=== PATIENT | female | born 1950 | race Caucasian/White ===

== ENCOUNTER 2017-02-20 12:17 | Emergency (ER) | payer MEDICARE, BC ==
[~2017-02-20] VITALS: Ht 175.3 cm; Wt 65.0 kg
[2017-02-20] MEDS ORDERED: SODIUM CHLORIDE 0.9% 1,000 ML IV ONE (12:19)
[2017-02-20] MEDS ORDERED: SODIUM CHLORIDE FLUSH 10ML SYR IVF ONE (12:30)
[2017-02-20 12:39] LABS: HEMOGLOBIN 13.6 g/dL (11.7-16.4)
[2017-02-20 12:52] LABS: ASPARTATE AMINO TRANSFERASE 23 U/L (15-37); BLOOD UREA NITROGEN 13 mg/dL (7-18)
[2017-02-20] MEDS ORDERED: CELE200C PO (13:21)
[2017-02-20] MEDS ORDERED: MULT-154 PO (13:21)
[2017-02-20] MEDS ORDERED: ESCI10TA PO (13:21)
[2017-02-20] MEDS ORDERED: CALC500T26 PO (13:21)
[2017-02-20] MEDS ORDERED: ELET20TA PO (13:21)
[2017-02-20] MEDS ORDERED: ESTR0.5T PO (13:21)
[2017-02-20] MEDS ORDERED: LEVO75TA PO (13:21)
[2017-02-20] MEDS ORDERED: OMEG1CAP62 PO (13:21)
[2017-02-20] MEDS ORDERED: ACET650S21 PO (13:21)
[2017-02-20 14:51] VITALS: BP 137/79
== END 2017-02-20 14:52 | disposition home or self-care (01) ==
LOC: ED 14:20
DX: K59.00 Constipation, unspecified (principal); E87.1 Hypo-osmolality and hyponatremia; R10.9 Unspecified abdominal pain
CPT/HCPCS: 36415; 74020; 80053; 81001; 83690; 85025; 96360; 96361; 99285; J7030

== ENCOUNTER 2017-02-21 01:12 | Inpatient (IN) | payer MEDICARE, BC ==
[~2017-02-21] VITALS: Ht 175.3 cm; Wt 65.6 kg
[~2017-02-21 01:12] MED LIST: ACET650S21 PO; CALC500T26 PO; CELE200C PO; ELET20TA PO; ESCI10TA PO; ESTR0.5T PO; LEVO75TA PO; MULT-154 PO; OMEG1CAP62 PO
[2017-02-21] MEDS ORDERED: ONDANSETRON 2MG/ML, 2ML IVPush ONE (02:00)
[2017-02-21] MEDS ORDERED: SODIUM CHLORIDE 0.9% 1,000ML IVBOLUS ONE (02:00)
[2017-02-21] MEDS ORDERED: HYDROmorphone 1 MG/ML, 1ML IVPush PRN (02:00)
[2017-02-21 02:17] LABS: HEMOGLOBIN 14.7 g/dL (11.7-16.4)
[2017-02-21] MEDS ORDERED: ONDANSETRON 2MG/ML, 2ML ONE (02:21)
[2017-02-21] MEDS ORDERED: HYDROmorphone 1 MG/ML, 1ML ONE (02:21)
[2017-02-21 02:28] LABS: ASPARTATE AMINO TRANSFERASE 23 U/L (15-37); BLOOD UREA NITROGEN 9 mg/dL (7-18)
[2017-02-21] MEDS ORDERED: OMNIPAQUE 350 MG/ML, 100ML BOTTLE ONE (02:50)
[2017-02-21] MEDS ORDERED: BISACODYL 10 MG SUPP PR PRN (05:00)
[2017-02-21] MEDS ORDERED: ACETAMINOPHEN 325 MG TABLET PO PRN (05:00)
[2017-02-21] MEDS ORDERED: POLYETHYLENE GLYCOL 17 GM PACKET PO PRN (05:00)
[2017-02-21] MEDS ORDERED: LABETALOL 5MG/ML, 20ML IV PRN (05:00)
[2017-02-21] MEDS ORDERED: DOCUSATE 100 MG CAPSULE PO PRN (05:00)
[2017-02-21] MEDS ORDERED: TRAZODONE 50MG TABLET PO PRN (05:00)
[2017-02-21] MEDS: NS + 20MEQ KCL 1,000 ML IV SCH ×4 (05:47→21:29)
[2017-02-21] MEDS: LEVOTHYROXINE 75 MCG TABLET PO SCH (05:50)
[2017-02-21 06:10] VITALS: BP 171/77
[2017-02-21 07:26] VITALS: BP 162/92
[2017-02-21] MEDS: ONDANSETRON 2MG/ML, 2ML IVP PRN ×2 (08:17→16:35)
[2017-02-21] MEDS: CALCIUM CARBONATE 500 MG TABLET PO SCH (09:00)
[2017-02-21] MEDS: ESTRADIOL 0.5 MG TABLET PO SCH (09:00)
[2017-02-21] MEDS: CITALOPRAM 20 MG TABLET PO SCH (09:00)
[2017-02-21] MEDS: FAMOTIDINE 20 MG/2 ML IV SCH ×2 (09:24→21:29)
[2017-02-21] MEDS: HEPARIN 5,000 UNITS/ML, 1ML SQ SCH ×2 (09:25→17:54)
[2017-02-21] MEDS: MORPHINE SULFATE 4 MG/ML, 1ML IVPush PRN (09:57)
[2017-02-21 13:30] VITALS: BP 152/79
[2017-02-21] MEDS ORDERED: KETOROLAC 30 MG/1 ML IM PRN ×2 (15:30)
[2017-02-21] MEDS: KETOROLAC 30 MG/1 ML IVPush PRN (16:35)
[2017-02-21 19:34] VITALS: BP 154/89
[2017-02-22 01:17] VITALS: BP 153/85
[2017-02-22] MEDS: HEPARIN 5,000 UNITS/ML, 1ML SQ SCH ×3 (01:19→20:58)
[2017-02-22] MEDS: LEVOTHYROXINE 75 MCG TABLET PO SCH (04:57)
[2017-02-22 05:39] LABS: HEMOGLOBIN 15.9 g/dL (11.7-16.4)
[2017-02-22 05:50] LABS: BLOOD UREA NITROGEN 10 mg/dL (7-18)
[2017-02-22] MEDS: NS + 20MEQ KCL 1,000 ML IV SCH (06:32)
[2017-02-22 07:51] VITALS: BP 154/80
[2017-02-22] MEDS: CITALOPRAM 20 MG TABLET PO SCH (09:00)
[2017-02-22] MEDS: CALCIUM CARBONATE 500 MG TABLET PO SCH (09:00)
[2017-02-22] MEDS: ESTRADIOL 0.5 MG TABLET PO SCH (09:00)
[2017-02-22] MEDS ORDERED: BENZOCAINE AEROSOL SPRAY 20%, 60ML TP ONE (09:00)
[2017-02-22] MEDS: FAMOTIDINE 20 MG/2 ML IV SCH ×2 (11:27→20:58)
[2017-02-22] MEDS ORDERED: BENZOCAINE AEROSOL SPRAY 20%, 60ML TP PRN (11:30)
[2017-02-22] MEDS: ONDANSETRON 2MG/ML, 2ML IVP PRN (13:37)
[2017-02-22] MEDS: KETOROLAC 30 MG/1 ML IVPush PRN (14:26)
[2017-02-22 14:45] VITALS: BP 153/80
[2017-02-22 19:22] VITALS: BP 155/84
[2017-02-22] MEDS ORDERED: GLYCERIN ADULT SUPP PR ONE (21:00)
[2017-02-23 01:13] VITALS: BP 167/88
[2017-02-23] MEDS: KETOROLAC 30 MG/1 ML IVPush PRN ×2 (01:33→19:20)
[2017-02-23 05:41] LABS: HEMOGLOBIN 13.9 g/dL (11.7-16.4)
[2017-02-23 05:51] LABS: BLOOD UREA NITROGEN 16 mg/dL (7-18)
[2017-02-23] MEDS: HEPARIN 5,000 UNITS/ML, 1ML SQ SCH ×3 (06:25→17:56)
[2017-02-23 07:43] VITALS: BP 161/86
[2017-02-23] MEDS: FAMOTIDINE 20 MG/2 ML IV SCH (08:34)
[2017-02-23] MEDS: NS + 20MEQ KCL 1,000 ML IV SCH ×3 (09:38→17:56)
[2017-02-23] MEDS: MORPHINE SULFATE 4 MG/ML, 1ML IVPush PRN (12:23)
[2017-02-23] MEDS: ONDANSETRON 2MG/ML, 2ML IVP PRN (12:23)
[2017-02-23 13:57] VITALS: BP 150/83
[2017-02-23] MEDS ORDERED: ONDANSETRON 2MG/ML, 2ML IVPush PRN (17:00)
[2017-02-23 20:55] VITALS: BP 136/77
[2017-02-23] MEDS: FAMOTIDINE 20 MG/2 ML IVPush SCH (20:55)
[2017-02-24] MEDS: D5%-0.9% NACL+KCL 20MEQ 1,000 ML IV SCH ×3 (00:28→23:58)
[2017-02-24] MEDS: HEPARIN 5,000 UNITS/ML, 1ML SQ SCH (01:00)
[2017-02-24] MEDS: KETOROLAC 30 MG/1 ML IVPush PRN (01:57)
[2017-02-24 02:00] VITALS: BP 150/77
[2017-02-24] MEDS ORDERED: MORPHINE SULFATE 4 MG/ML, 1ML IVPush ONE (04:00)
[2017-02-24 05:34] LABS: HEMOGLOBIN 12.4 g/dL (11.7-16.4)
[2017-02-24 05:43] LABS: BLOOD UREA NITROGEN 15 mg/dL (7-18)
[2017-02-24] MEDS: HYDROmorphone 2 MG/ML, 1ML IVPush PRN (07:31)
[2017-02-24 08:00] VITALS: BP 153/83
[2017-02-24] MEDS: FAMOTIDINE 20 MG/2 ML IVPush SCH ×2 (10:52→22:34)
[2017-02-24] MEDS ORDERED: FENTANYL PF 250 MCG/5ML ONE (11:51)
[2017-02-24] MEDS ORDERED: MIDAZOLAM 1 MG/ML, 2ML ONE (11:51)
[2017-02-24] MEDS ORDERED: CEFAZOLIN 1,000 MG ONE (12:11)
[2017-02-24] MEDS ORDERED: ROCURONIUM 10 MG/ML ONE (12:11)
[2017-02-24] MEDS ORDERED: DEXAMETHASONE 4 MG/ML, 1ML ONE (12:11)
[2017-02-24] MEDS ORDERED: NEOSTIGMINE 1 MG/ML, 10ML ONE (12:11)
[2017-02-24] MEDS ORDERED: METOCLOPRAMIDE 5 MG/ML, 2ML ONE (12:11)
[2017-02-24] MEDS ORDERED: GLYCOPYRROLATE 0.2MG/1ML ONE (12:11)
[2017-02-24] MEDS ORDERED: SUCCINYLCHOLINE 20 MG/ML, 10ML ONE (12:11)
[2017-02-24] MEDS ORDERED: PROPOFOL 10 MG/ML, 20ML ONE (12:11)
[2017-02-24] MEDS ORDERED: ONDANSETRON 2MG/ML, 2ML ONE (12:11)
[2017-02-24] MEDS ORDERED: KETOROLAC 30 MG/1 ML ONE (12:11)
[2017-02-24] MEDS ORDERED: OXYcodone 5 MG/5 ML ORAL.SOL UDC PO PRN (13:00)
[2017-02-24] MEDS ORDERED: MIDAZOLAM 1 MG/ML, 2ML IV PRN (13:00)
[2017-02-24] MEDS ORDERED: MEPERIDINE/PF 25MG/0.5ML IVPush PRN (13:00)
[2017-02-24] MEDS ORDERED: LABETALOL 5MG/ML, 20ML IV PRN (13:00)
[2017-02-24] MEDS ORDERED: ALBUTEROL SULFATE 2.5 MG/3 ML NPPB PRN (13:00)
[2017-02-24] MEDS ORDERED: ONDANSETRON 2MG/ML, 2ML IVPush PRN (13:00)
[2017-02-24] MEDS ORDERED: EPHEDRINE 50 MG/ML, 1ML IVPush PRN (13:00)
[2017-02-24] MEDS ORDERED: hydrALAzine 20 MG/ML, 1ML IV PRN (13:00)
[2017-02-24] MEDS ORDERED: HYDROmorphone 1 MG/ML, 1ML IV PRN (13:00)
[2017-02-24] MEDS ORDERED: PROMETHAZINE 25 MG/ML, 1ML IV PRN (13:00)
[2017-02-24] MEDS ORDERED: ACETAMINOPHEN 325 MG TABLET PO PRN ×2 (13:00→15:00)
[2017-02-24] MEDS ORDERED: METOPROLOL 1 MG/ML, 5ML IV PRN (13:00)
[2017-02-24] MEDS ORDERED: FENTANYL PF 100 MCG/2ML IV PRN (13:00)
[2017-02-24] MEDS ORDERED: RELPAX PO PRN (15:00)
[2017-02-24 15:52] VITALS: BP 136/81
[2017-02-24 19:06] VITALS: BP 135/83
[2017-02-24] MEDS ORDERED: SODIUM CHLORIDE 0.9%, 500ML IVBOLUS ONE (21:30)
[2017-02-24] MEDS: KETOROLAC 30 MG/1 ML IV PRN (21:49)
[2017-02-25 00:39] VITALS: BP 134/82
[2017-02-25 05:41] LABS: HEMOGLOBIN 14.3 g/dL (11.7-16.4)
[2017-02-25 05:46] LABS: BLOOD UREA NITROGEN 14 mg/dL (7-18)
[2017-02-25] MEDS ORDERED: LEVOTHYROXINE 75 MCG TABLET PO SCH (06:00)
[2017-02-25] MEDS: KETOROLAC 30 MG/1 ML IV PRN ×3 (06:15→23:05)
[2017-02-25 06:31] VITALS: BP 133/79
[2017-02-25] MEDS: D5%-0.9% NACL+KCL 20MEQ 1,000 ML IV SCH ×3 (06:47→23:04)
[2017-02-25] MEDS: FAMOTIDINE 20 MG/2 ML IVPush SCH ×2 (08:23→20:16)
[2017-02-25] MEDS: HYDROmorphone 2 MG/ML, 1ML IVPush PRN (08:23)
[2017-02-25] MEDS: LEXAPRO 10 MG PO SCH (08:24)
[2017-02-25] MEDS: ESTRADIOL 0.5 MG TABLET PO SCH (08:24)
[2017-02-25] MEDS: MULTIVITAMIN 1 TABLET PO SCH (08:25)
[2017-02-25] MEDS: CALCIUM CARBONATE 500 MG TABLET PO SCH (08:25)
[2017-02-25] MEDS: OMEGA-3/FISH OIL CAPSULE PO SCH (08:25)
[2017-02-25] MEDS: LEVOTHYROXINE 100 MCG INJ IVPush SCH (10:33)
[2017-02-25 12:58] VITALS: BP 155/82
[2017-02-25 19:36] VITALS: BP 142/80
[2017-02-26 02:20] VITALS: BP 146/81
[2017-02-26] MEDS: D5%-0.9% NACL+KCL 20MEQ 1,000 ML IV SCH ×3 (04:03→17:41)
[2017-02-26 06:01] LABS: BLOOD UREA NITROGEN 6 mg/dL (7-18)
[2017-02-26 07:10] VITALS: BP 141/84
[2017-02-26] MEDS: FAMOTIDINE 20 MG/2 ML IVPush SCH ×2 (08:37→19:33)
[2017-02-26] MEDS: LEVOTHYROXINE 100 MCG INJ IVPush SCH (08:37)
[2017-02-26] MEDS: LEXAPRO 10 MG PO SCH ×2 (09:00→10:04)
[2017-02-26] MEDS: MULTIVITAMIN 1 TABLET PO SCH (09:00)
[2017-02-26] MEDS: ESTRADIOL 0.5 MG TABLET PO SCH (09:00)
[2017-02-26] MEDS: OMEGA-3/FISH OIL CAPSULE PO SCH (09:00)
[2017-02-26] MEDS: CALCIUM CARBONATE 500 MG TABLET PO SCH (09:00)
[2017-02-26] MEDS: KETOROLAC 30 MG/1 ML IV PRN (10:01)
[2017-02-26] MEDS ORDERED: KETOROLAC 30 MG/1 ML IV PRN (10:30)
[2017-02-26 12:57] VITALS: BP 159/91
[2017-02-26 20:08] VITALS: BP 155/86
[2017-02-26] MEDS ORDERED: D5%-0.9% NACL+KCL 20MEQ 1,000 ML IV SCH (22:30)
[2017-02-27] MEDS: D5%-0.9% NACL+KCL 20MEQ 1,000 ML IV SCH ×2 (01:50→11:18)
[2017-02-27 02:44] VITALS: BP 145/87
[2017-02-27 07:45] VITALS: BP 138/80
[2017-02-27] MEDS: FAMOTIDINE 20 MG/2 ML IVPush SCH (08:08)
[2017-02-27] MEDS: MULTIVITAMIN 1 TABLET PO SCH (08:09)
[2017-02-27] MEDS: LEXAPRO 10 MG PO SCH (08:09)
[2017-02-27] MEDS: CALCIUM CARBONATE 500 MG TABLET PO SCH (08:09)
[2017-02-27] MEDS: OMEGA-3/FISH OIL CAPSULE PO SCH (08:09)
[2017-02-27] MEDS: LEVOTHYROXINE 100 MCG INJ IVPush SCH (08:09)
[2017-02-27] MEDS: ESTRADIOL 0.5 MG TABLET PO SCH (08:09)
[2017-02-27 13:30] VITALS: BP 150/89
[2017-02-27] MEDS ORDERED: HYDROcodone/APAP 5/325 TABLET PO PRN (13:30)
[2017-02-27 15:24] VITALS: BP 132/82
[2017-02-27] MEDS ORDERED: HYDR-3240 PO (16:35)
== END 2017-02-27 16:45 | disposition home or self-care (01) | DRG 336 ==
LOC: ED 03:39 → EDIP 03:40 → ED 03:44 → 3NE 05:00 → 4NOR 02-24 14:20 → DCLOUNGE 02-27 16:15
PROVIDERS: ADMIT Internal Medicine; ATTEND Internal Medicine
PROC: 0DNE0ZZ Release Large Intestine, Open Approach (ICD-10-PCS; 2017-02-24)
PROC: 0W9G0ZZ Drainage of Peritoneal Cavity, Open Approach (ICD-10-PCS; 2017-02-24)
PROC: 0D980ZZ Drainage of Small Intestine, Open Approach (ICD-10-PCS; 2017-02-24)
PROC: 0DTJ0ZZ Resection of Appendix, Open Approach (ICD-10-PCS; principal; 2017-02-24 12:00)
DX: K56.5 Intestinal adhesions [bands] with obstruction (postinfection) (principal); E87.1 Hypo-osmolality and hyponatremia; R18.8 Other ascites; E87.6 Hypokalemia; D72.828 Other elevated white blood cell count; E03.9 Hypothyroidism, unspecified; I83.90 Asymptomatic varicose veins of unspecified lower extremity; R63.4 Abnormal weight loss; R61 Generalized hyperhidrosis; J45.990 Exercise induced bronchospasm; Z88.8 Allergy status to other drugs, medicaments and biological substances; Z90.710 Acquired absence of both cervix and uterus; Z88.1 Allergy status to other antibiotic agents; Z83.79 Family history of other diseases of the digestive system; Z66 Do not resuscitate
CPT/HCPCS: 36415; 74000; 74020; 74177; 74250; 80048; 80053; 81001; 82436; 82570; 83690; 83935; 84133; 84300; 84443; 85025; 88304; 96360; 96361; 96374; 96375; J0690; J1100; J1170; J1644; J1885; J2250; J2405; J2704; J2710; J3010; J3480; J3490; Q9967; J0330; J2765; J7030; J7040; S0028